=== PATIENT | female | born 1995 | race Caucasian/White ===

== ENCOUNTER 2022-04-20 09:42 | Emergency (ER) | payer MEDICAID ==
[~2022-04-20] VITALS: Ht 165.1 cm; Wt 66.0 kg
[2022-04-20] MEDS ORDERED: ACETAMINOPHEN 325MG TABLET PO ONE (10:30)
[2022-04-20] MEDS: ACETAMINOPHEN 500MG TABLET PO NR ×2 (10:33→10:36)
[2022-04-20] MEDS ORDERED: IBUPROFEN 600MG TABLET PO ONE (11:45)
[2022-04-20 12:06] VITALS: BP 126/75
[2022-04-20] MEDS ORDERED: SODIUM CHLORIDE 0.9% 1,000 ML IV ONE (12:30)
[2022-04-20 13:46] LABS: CLARITY URINE CLOUDY (CLEAR); COLOR URINE YELLOW (YELLOW); KETONES URINE NEGATIVE (NEGATIVE); LEUKOCYTE ESTERASE URINE 3+ (NEGATIVE); NITRITE URINE POSITIVE (NEGATIVE); OCCULT BLOOD URINE 3+ (NEGATIVE); PROTEIN URINE TRACE (NEGATIVE); SPECIFIC GRAVITY URINE 1.009 (1.005-1.030); UROBILINOGEN URINE 0.2 E.U./dL (0.2-1.0)
[2022-04-20] MEDS ORDERED: CEFTRIAXONE 1 G PREMIX 50 ML IV ONE (14:30)
[2022-04-20] MEDS ORDERED: LEVO500T90 MT (16:37)
[2022-04-20] MEDS ORDERED: GUAI-741 MT (16:52)
== END 2022-04-20 17:00 | disposition home or self-care (01) ==
LOC: ER 09:42
DX: N39.0 Urinary tract infection, site not specified (principal); R50.9 Fever, unspecified; Z20.822 Contact with and (suspected) exposure to COVID-19
CPT/HCPCS: 71045; 81003; 81025; 87426; 96361; 96365; 99284; C9803; J0696; J7030